=== PATIENT | male | born 1950 | race Hispanic/Latino ===

== ENCOUNTER → 2017-08-29 | Outpatient (CLI) | payer OTHER ==
[~2017-08-29] MED LIST: AMLO5TAB2 PO; FOLI1TAB15 PO; HYDR25TA PO; IBUP-2077 PO; LISI40TA4 PO; SIMV40TA5 PO; UMEC1DIS IH
== END | disposition home or self-care (01) ==
LOC: OIH 13:49
PROVIDERS: ATTEND Family Medicine
DX: J44.9 Chronic obstructive pulmonary disease, unspecified (principal)
CPT/HCPCS: 71046

== ENCOUNTER 2017-09-10 14:45 | Inpatient (IN) | payer OTHER ==
[~2017-09-10] VITALS: Ht 167.6 cm; Wt 50.8 kg
[2017-09-10] MEDS ORDERED: IPRATROPIUM/ALBUTEROL SULFATE 3 ML SOLUTION IH ONE (15:45)
[2017-09-10 15:47] LABS: BASOPHILS % (AUTO) 0.3 % (0.0-5.0); EOSINOPHILS % (AUTO) 0.9 % (0.0-8.0); HEMATOCRIT 29.9 % (42-54); LYMPHOCYTES % (AUTO) 12.1 % (21.0-51.0); MEAN CORPUSCULAR HEMOGLOBIN 29.9 pg (27.0-33.0); MEAN CORPUSCULAR HGB CONC 33.8 g/dL (32.0-36.0); MEAN CORPUSCULAR VOLUME 88.7 fL (79-99); MONOCYTES % (AUTO) 8.3 % (3.0-13.0); NEUTROPHILS % (AUTO) 78.4 % (40.0-77.0); PLATELET COUNT (AUTO) 338 K/uL (130-400); RED BLOOD CELL COUNT(AUTO) 3.37 MIL/uL (4.50-6.20); RED CELL DISTRIBUTION WIDTH 15.6 % (11.0-15.5); WHITE BLOOD COUNT (AUTO) 17.1 K/uL (4.8-10.8)
[2017-09-10] MEDS ORDERED: METHYLPREDNISOLONE SOD SUCC 125MG/2ML VIAL ONE ×2 (16:01→23:57)
[2017-09-10 16:06] LABS: APPEARANCE,URINE Clear (CLEAR); BILIRUBIN,URINE Negative (NEGATIVE); COLOR,URINE Yellow (YELLOW); GLUCOSE, URINE (UA) Negative (NEGATIVE); KETONES,URINE Negative (NEGATIVE); LEUKOCYTE ESTERASE ,URINE Negative (NEGATIVE); NITRATE,URINE Negative (NEGATIVE); OCCULT BLOOD,URINE Negative (NEGATIVE); PROTEIN,URINE Negative (NEGATIVE); UROBILINOGEN,URINE 0.2 mg/dL (0.2-1.0)
[2017-09-10 16:09] LABS: B-TYPE NATRIURETIC PEPTIDE 22 pg/mL (0-100)
[2017-09-10 16:10] LABS: INR 0.92 (0.85-1.15); PARTIAL THROMBOPLASTIN TIME 23.3 SEC (26.3-35.5); PROTHROMBIN TIME 9.7 SEC (9.6-11.6)
[2017-09-10 16:16] LABS: CREATININE 2.5 mg/dL (0.5-1.5); POTASSIUM 5.1 mmol/L (3.5-5.1)
[2017-09-10] MEDS ORDERED: LEVOFLOXACIN 500 MG TABLET ONE (16:22)
[2017-09-10] MEDS ORDERED: CEFTRIAXONE SODIUM 1 GM ONE (16:23)
[2017-09-10] MEDS ORDERED: SODIUM CHLORIDE 0.9% 250 ML IV ONE (16:23)
[2017-09-10 16:30] LABS: ALBUMIN 3.6 g/dL (3.5-5.0); BILIRUBIN,TOTAL 0.3 mg/dL (0.2-1.0); CREATINE KINASE MB 1.3 ng/mL (0.5-3.6)
[2017-09-10 23:25] VITALS: BP 176/59
[2017-09-10] MEDS ORDERED: AZITHROMYCIN 500MG+NS 250ML 250 ML IV ONE (23:55)
[2017-09-11] VITALS (7 sets, daily range): BP systolic 101–148; BP diastolic 49–60
[2017-09-11] MEDS ORDERED: ACETAMINOPHEN 325 MG TAB PO PRN ×2
[2017-09-11] MEDS: AZITHROMYCIN 500MG+NS 250ML 250 ML IV SCH
[2017-09-11] MEDS ORDERED: ONDANSETRON HCL 4 MG/2 ML VIAL IV PRN
[2017-09-11] MEDS ORDERED: FOLI1TAB15 PO (00:34)
[2017-09-11] MEDS ORDERED: LISI40TA4 PO (00:34)
[2017-09-11] MEDS ORDERED: UMEC1DIS IH (00:34)
[2017-09-11] MEDS ORDERED: HYDR25TA PO (00:34)
[2017-09-11] MEDS ORDERED: AMLO5TAB2 PO (00:34)
[2017-09-11] MEDS ORDERED: SIMV40TA5 PO (00:34)
[2017-09-11] MEDS ORDERED: IBUP-2077 PO (00:34)
[2017-09-11] MEDS: IPRATROPIUM/ALBUTEROL SULFATE 3 ML SOLUTION IH SCH ×6 (01:50→22:14)
[2017-09-11 04:50] LABS: HEMATOCRIT 28.2 % (42-54); MEAN CORPUSCULAR HEMOGLOBIN 28.5 pg (27.0-33.0); MEAN CORPUSCULAR HGB CONC 32.3 g/dL (32.0-36.0); PLATELET COUNT (AUTO) 337 K/uL (130-400); RED CELL DISTRIBUTION WIDTH 15.9 % (11.0-15.5); WHITE BLOOD COUNT (AUTO) 7.6 K/uL (4.8-10.8)
[2017-09-11 05:02] LABS: ALBUMIN 3.1 g/dL (3.5-5.0); BILIRUBIN,TOTAL 0.3 mg/dL (0.2-1.0); CREATININE 1.3 mg/dL (0.5-1.5); POTASSIUM 4.4 mmol/L (3.5-5.1); TOTAL PROTEIN, SERUM 6.6 g/dL (6.0-8.3)
[2017-09-11] MEDS ORDERED: SODIUM CHLORIDE 0.9% 10 ML VIAL IVP PRN (07:00)
[2017-09-11] MEDS: PANTOPRAZOLE SODIUM 40 MG TABLET.DR PO SCH (07:08)
[2017-09-11] MEDS ORDERED: PNEUMOCOCCAL VACCINE POLYVALENT 0.5 ML/VIAL [PPV] IM SCH (07:30)
[2017-09-11] MEDS ORDERED: FLU VACC QS2017-18 36MOS UP/PF 60 MCG/0.5 ML ML IM NR (07:30)
[2017-09-11] MEDS ORDERED: CEFTRIAXONE 1GM/D5W 50ML 50 ML IV SCH (09:00)
[2017-09-11] MEDS ORDERED: PANTOPRAZOLE SODIUM 40 MG TABLET.DR PO SCH (09:00)
[2017-09-11] MEDS: METHYLPREDNISOLONE SOD SUCC 125MG/2ML VIAL IVP SCH ×3 (09:54→17:17)
[2017-09-11] MEDS: CEFTRIAXONE SODIUM 1 GM IVP SCH (10:21)
[2017-09-11] MEDS: SODIUM CHLORIDE 0.9% 1000ML 1,000 ML IV SCH (14:00)
[2017-09-11] MEDS: ATORVASTATIN CALCIUM 20 MG TABLET PO SCH (21:03)
[2017-09-12] MEDS: METHYLPREDNISOLONE SOD SUCC 125MG/2ML VIAL IVP SCH ×3 (00:01→20:30)
[2017-09-12] MEDS: AZITHROMYCIN 500MG+NS 250ML 250 ML IV SCH ×2 (00:01→23:40)
[2017-09-12] MEDS: IPRATROPIUM/ALBUTEROL SULFATE 3 ML SOLUTION IH SCH ×4 (01:56→14:40)
[2017-09-12 03:00] VITALS: BP 100/48
[2017-09-12] MEDS: SODIUM CHLORIDE 0.9% 1000ML 1,000 ML IV SCH (05:03)
[2017-09-12 05:13] LABS: BASOPHILS % (AUTO) 0.1 % (0.0-5.0); HEMATOCRIT 23.8 % (42-54); LYMPHOCYTES % (AUTO) 5.3 % (21.0-51.0); MEAN CORPUSCULAR HEMOGLOBIN 29.4 pg (27.0-33.0); MEAN CORPUSCULAR HGB CONC 33.3 g/dL (32.0-36.0); MEAN CORPUSCULAR VOLUME 88.3 fL (79-99); MONOCYTES % (AUTO) 3.7 % (3.0-13.0); NEUTROPHILS % (AUTO) 90.9 % (40.0-77.0); PLATELET COUNT (AUTO) 300 K/uL (130-400); RED CELL DISTRIBUTION WIDTH 15.5 % (11.0-15.5); WHITE BLOOD COUNT (AUTO) 11.7 K/uL (4.8-10.8)
[2017-09-12 05:37] LABS: ALBUMIN 2.7 g/dL (3.5-5.0); BILIRUBIN,TOTAL 0.2 mg/dL (0.2-1.0); CREATININE 1.2 mg/dL (0.5-1.5); POTASSIUM 3.7 mmol/L (3.5-5.1); TOTAL PROTEIN, SERUM 5.6 g/dL (6.0-8.3)
[2017-09-12] MEDS: PANTOPRAZOLE SODIUM 40 MG TABLET.DR PO SCH (06:53)
[2017-09-12 08:00] VITALS: BP 109/49
[2017-09-12] MEDS ORDERED: WATER FOR INJECTION,STERILE 20 ML VIAL ONE (08:45)
[2017-09-12] MEDS: CEFTRIAXONE SODIUM 1 GM IVP SCH (08:51)
[2017-09-12] MEDS: FOLIC ACID 1 MG TABLET PO SCH (08:52)
[2017-09-12] MEDS: AMLODIPINE BESYLATE 5 MG TAB PO SCH (09:00)
[2017-09-12] MEDS ORDERED: NON-FORMULARY MEDICATION 1 EACH (Umeclidinium Brm/Vilanterol Tr (Anoro Ellipta 62.5-25 Mcg IH SCH (09:00)
[2017-09-12 11:52] VITALS: BP 140/59
[2017-09-12 15:50] VITALS: BP 165/71
[2017-09-12] MEDS: ALBUTEROL SULFATE 0.083% 2.5 MG/3 ML INH IH SCH ×2 (19:11→22:24)
[2017-09-12] MEDS: BUDESONIDE 0.5 MG/2 ML INH IH SCH (19:15)
[2017-09-12] MEDS: ATORVASTATIN CALCIUM 20 MG TABLET PO SCH (19:47)
[2017-09-12 20:13] VITALS: BP 174/78
[2017-09-12] MEDS ORDERED: METHYLPREDNISOLONE SOD SUCC 40MG/ML 1ML ONE (20:18)
[2017-09-12 20:38] LABS: ABG BASE EXCESS -1.3 mmol/L (-2.0-3.0); ABG HCO3 22.9 mmol/L (21.0-28.0); ABG OXYGEN SATURATION 93.4 % (95.0-99.0); ABG PCO2 37 mmHg (35-48)
[2017-09-12] MEDS ORDERED: IOPAMIDOL-370 75 ML VIAL IV ONE (20:59)
[2017-09-13] VITALS (7 sets, daily range): BP systolic 124–167; BP diastolic 60–80
[2017-09-13] MEDS: METHYLPREDNISOLONE SOD SUCC 125MG/2ML VIAL IVP SCH ×3 (05:18→21:17)
[2017-09-13 05:24] LABS: HEMATOCRIT 25.5 % (42-54); LYMPHOCYTES % (AUTO) 5.7 % (21.0-51.0); MEAN CORPUSCULAR HEMOGLOBIN 29.2 pg (27.0-33.0); MEAN CORPUSCULAR HGB CONC 33.1 g/dL (32.0-36.0); MEAN CORPUSCULAR VOLUME 88.1 fL (79-99); MONOCYTES % (AUTO) 8.8 % (3.0-13.0); NEUTROPHILS % (AUTO) 85.5 % (40.0-77.0); PLATELET COUNT (AUTO) 294 K/uL (130-400); RED CELL DISTRIBUTION WIDTH 15.7 % (11.0-15.5)
[2017-09-13] MEDS: ALBUTEROL SULFATE 0.083% 2.5 MG/3 ML INH IH SCH ×4 (06:23→23:05)
[2017-09-13] MEDS: BUDESONIDE 0.5 MG/2 ML INH IH SCH ×2 (06:31→20:04)
[2017-09-13] MEDS: PANTOPRAZOLE SODIUM 40 MG TABLET.DR PO SCH (06:44)
[2017-09-13] MEDS ORDERED: WATER FOR INJECTION,STERILE 5 ML VIAL ONE (07:59)
[2017-09-13] MEDS: FOLIC ACID 1 MG TABLET PO SCH (08:41)
[2017-09-13] MEDS: AMLODIPINE BESYLATE 5 MG TAB PO SCH (08:41)
[2017-09-13] MEDS: CEFTRIAXONE SODIUM 1 GM IVP SCH (08:42)
[2017-09-13] MEDS: ATORVASTATIN CALCIUM 20 MG TABLET PO SCH (21:17)
[2017-09-13] MEDS: LISINOPRIL 40 MG TABLET PO SCH (21:17)
[2017-09-13] MEDS: AZITHROMYCIN 500MG+NS 250ML 250 ML IV SCH (23:52)
[2017-09-14 04:00] VITALS: BP 128/60
[2017-09-14] MEDS: METHYLPREDNISOLONE SOD SUCC 125MG/2ML VIAL IVP SCH ×3 (04:40→21:05)
[2017-09-14 05:08] LABS: HEMATOCRIT 25.6 % (42-54); LYMPHOCYTES % (AUTO) 7.8 % (21.0-51.0); MEAN CORPUSCULAR HGB CONC 32.7 g/dL (32.0-36.0); MEAN CORPUSCULAR VOLUME 88.6 fL (79-99); MONOCYTES % (AUTO) 6.3 % (3.0-13.0); NEUTROPHILS % (AUTO) 85.9 % (40.0-77.0); PLATELET COUNT (AUTO) 272 K/uL (130-400); RED BLOOD CELL COUNT(AUTO) 2.89 MIL/uL (4.50-6.20); RED CELL DISTRIBUTION WIDTH 15.6 % (11.0-15.5); WHITE BLOOD COUNT (AUTO) 12.4 K/uL (4.8-10.8)
[2017-09-14 05:19] LABS: ALBUMIN 2.6 g/dL (3.5-5.0); BILIRUBIN,TOTAL 0.2 mg/dL (0.2-1.0); CREATININE 0.9 mg/dL (0.5-1.5); TOTAL PROTEIN, SERUM 5.4 g/dL (6.0-8.3)
[2017-09-14] MEDS: ALBUTEROL SULFATE 0.083% 2.5 MG/3 ML INH IH SCH ×4 (05:46→23:59)
[2017-09-14] MEDS: BUDESONIDE 0.5 MG/2 ML INH IH SCH ×2 (05:58→17:51)
[2017-09-14] MEDS: PANTOPRAZOLE SODIUM 40 MG TABLET.DR PO SCH (05:59)
[2017-09-14 07:00] VITALS: BP 138/63
[2017-09-14] MEDS ORDERED: LISINOPRIL 40 MG TABLET PO SCH (09:00)
[2017-09-14] MEDS: AMLODIPINE BESYLATE 5 MG TAB PO SCH (10:53)
[2017-09-14] MEDS: FOLIC ACID 1 MG TABLET PO SCH (10:53)
[2017-09-14] MEDS: CEFTRIAXONE SODIUM 1 GM IVP SCH (10:54)
[2017-09-14 11:00] VITALS: BP 155/85
[2017-09-14 15:00] VITALS: BP 187/80
[2017-09-14 20:00] VITALS: BP 137/59
[2017-09-14] MEDS: ATORVASTATIN CALCIUM 20 MG TABLET PO SCH (21:05)
[2017-09-14] MEDS: LISINOPRIL 40 MG TABLET PO SCH (21:06)
[2017-09-14] MEDS: AZITHROMYCIN 500MG+NS 250ML 250 ML IV SCH (23:59)
[2017-09-15] VITALS (7 sets, daily range): BP systolic 123–182; BP diastolic 56–81
[2017-09-15] MEDS: METHYLPREDNISOLONE SOD SUCC 125MG/2ML VIAL IVP SCH ×2 (04:36→12:22)
[2017-09-15] MEDS: ALBUTEROL SULFATE 0.083% 2.5 MG/3 ML INH IH SCH ×2 (05:47→11:05)
[2017-09-15] MEDS: BUDESONIDE 0.5 MG/2 ML INH IH SCH (06:05)
[2017-09-15] MEDS: PANTOPRAZOLE SODIUM 40 MG TABLET.DR PO SCH (06:17)
[2017-09-15] MEDS: AMLODIPINE BESYLATE 5 MG TAB PO SCH (10:12)
[2017-09-15] MEDS: FOLIC ACID 1 MG TABLET PO SCH (10:12)
[2017-09-15] MEDS: CEFTRIAXONE SODIUM 1 GM IVP SCH (10:12)
[2017-09-15] MEDS ORDERED: CLONIDINE HCL 0.2 MG TABLET PO PRN (17:45)
[2017-09-15] MEDS: ATORVASTATIN CALCIUM 20 MG TABLET PO SCH (21:47)
[2017-09-15] MEDS: LISINOPRIL 40 MG TABLET PO SCH (21:48)
== END 2017-09-15 22:20 | DRG 190 ==
LOC: EDH 14:45 → EDHIP 16:20 → 4CH 23:15 → 4BH 09-12 03:57
PROVIDERS: ADMIT Family Medicine; ATTEND Family Medicine
PROC: 3E0234Z Introduction of Serum, Toxoid and Vaccine into Muscle, Percutaneous Approach (ICD-10-PCS; principal; 2017-09-11)
PROC: 3E0234Z Introduction of Serum, Toxoid and Vaccine into Muscle, Percutaneous Approach (ICD-10-PCS; 2017-09-11)
DX: J44.1 Chronic obstructive pulmonary disease with (acute) exacerbation (principal); J18.9 Pneumonia, unspecified organism; E87.5 Hyperkalemia; E11.9 Type 2 diabetes mellitus without complications; E78.5 Hyperlipidemia, unspecified; I10 Essential (primary) hypertension; Z87.891 Personal history of nicotine dependence
CPT/HCPCS: 36415; 36600; 71045; 71275; 80053; 81003; 82270; 82550; 82553; 82803; 83605; 83880; 84484; 85025; 85027; 85610; 85730; 87040; 87804; 90732; 93005; 93306; 94640; 94664; A4218; G0008; G0009; J0456; J0696; J2920; J2930; J7030; Q2038; Q9967

== ENCOUNTER 2018-11-10 23:25 | Emergency (ER) | payer OTHER ==
[~2018-11-10 23:25] MED LIST changes: -AMLO5TAB2 PO; +AMLO5TAB9 PO; -IBUP-2077 PO
[2018-11-11 00:04] LABS: BASOPHILS % (AUTO) 0.3 % (0.0-5.0); HEMATOCRIT 35.3 % (42-54); LYMPHOCYTES % (AUTO) 13.8 % (21.0-51.0); MEAN CORPUSCULAR HEMOGLOBIN 29.4 pg (27.0-33.0); MEAN CORPUSCULAR HGB CONC 33.2 g/dL (32.0-36.0); MEAN CORPUSCULAR VOLUME 88.6 fL (79-99); MONOCYTES % (AUTO) 3.1 % (3.0-13.0); NEUTROPHILS % (AUTO) 82.8 % (40.0-77.0); PLATELET COUNT (AUTO) 277 K/uL (130-400); RED BLOOD CELL COUNT(AUTO) 3.99 MIL/uL (4.50-6.20); RED CELL DISTRIBUTION WIDTH 14.3 % (11.0-15.5); WHITE BLOOD COUNT (AUTO) 6.6 K/uL (4.8-10.8)
[2018-11-11 00:11] LABS: INR 1.07 (0.85-1.15); PARTIAL THROMBOPLASTIN TIME 30.1 SEC (26.3-35.5); PROTHROMBIN TIME 11.2 SEC (9.6-11.6)
[2018-11-11] MEDS ORDERED: CEFTRIAXONE SODIUM 1 GM ONE (00:26)
[2018-11-11] MEDS ORDERED: LEVOFLOXACIN 500 MG/D5W 100 ML 100 ML ONE (00:26)
[2018-11-11] MEDS ORDERED: IPRATROPIUM/ALBUTEROL SULFATE 3 ML SOLUTION IH ONE (00:37)
[2018-11-11 00:49] LABS: ABG HCO3 21.2 mmol/L (21.0-28.0); ABG OXYGEN SATURATION 96.8 % (95.0-99.0); ABG PCO2 36 mmHg (35-48)
[2018-11-11 01:29] LABS: CREATININE 1.8 mg/dL (0.5-1.5); POTASSIUM 4.5 mmol/L (3.5-5.1)
[2018-11-11 01:44] LABS: ALBUMIN 4.2 g/dL (3.5-5.0); BILIRUBIN,TOTAL 0.3 mg/dL (0.2-1.0); TOTAL PROTEIN, SERUM 7.9 g/dL (6.0-8.3); TROPONIN I 0.06 ng/mL (0.00-0.06)
[2018-11-11] MEDS ORDERED: METHYLPREDNISOLONE SOD SUCC 125MG/2ML VIAL ONE (02:11)
[2018-11-11 02:47] LABS: APPEARANCE,URINE CLEAR (CLEAR); BILIRUBIN,URINE NEGATIVE (NEGATIVE); COLOR,URINE YELLOW (YELLOW); GLUCOSE, URINE (UA) 100 mg/dL (NEGATIVE); KETONES,URINE NEGATIVE (NEGATIVE); LEUKOCYTE ESTERASE ,URINE NEGATIVE (NEGATIVE); NITRATE,URINE NEGATIVE (NEGATIVE); OCCULT BLOOD,URINE TRACE-LYSED (NEGATIVE); PROTEIN,URINE NEGATIVE (NEGATIVE); UROBILINOGEN,URINE 0.2 mg/dL (0.2-1.0)
[2018-11-11 02:54] LABS: BACTERIA,URINE Rare /HPF (None Seen); RBC,URINE 0-1 /HPF (0-1); SQUAMOUS EPITHELIAL CELL,UR 0-2 /HPF (0-2); WBC,URINE 0-1 /HPF (0-1)
[2018-11-11 03:41] LABS: CREATININE 1.6 mg/dL (0.5-1.5); POTASSIUM 3.8 mmol/L (3.5-5.1)
[2018-11-11 05:33] LABS: CREATININE 1.5 mg/dL (0.5-1.5); POTASSIUM 3.8 mmol/L (3.5-5.1)
== END 2018-11-11 02:04 | disposition home or self-care (01) ==
LOC: EDH 23:25
DX: J44.1 Chronic obstructive pulmonary disease with (acute) exacerbation (principal); I10 Essential (primary) hypertension; E78.5 Hyperlipidemia, unspecified; Z90.49 Acquired absence of other specified parts of digestive tract
CPT/HCPCS: 36415; 36600; 71045; 71275; 80048 ×2; 80053; 81001; 82550; 82803; 83605; 83874; 83880; 84484; 85025; 85378; 85610; 85730; 87040 ×2; 93005; 94640 ×2; 96365; 96366; 96375; 99284; J0696; J1956; J2930

== ENCOUNTER → 2018-11-11 | Outpatient (CLI) | payer OTHER ==
[~2018-11-11] MED LIST changes: +IOHEXOL-350 75 ML VIAL IV ONE; +IPRATROPIUM/ALBUTEROL SULFATE 3 ML SOLUTION IH ONE
== END | disposition home or self-care (01) ==
LOC: RAH 09:30
PROVIDERS: ATTEND Family Medicine
DX: R10.11 Right upper quadrant pain (principal)
CPT/HCPCS: 76700; Q9967

== ENCOUNTER 2019-01-04 17:30 | Emergency (ER) | payer OTHER ==
[~2019-01-04 17:30] MED LIST changes: -IOHEXOL-350 75 ML VIAL IV ONE; -IPRATROPIUM/ALBUTEROL SULFATE 3 ML SOLUTION IH ONE
[2019-01-04 18:11] LABS: BASOPHILS % (AUTO) 0.6 % (0.0-5.0); EOSINOPHILS % (AUTO) 1.6 % (0.0-8.0); HEMATOCRIT 34.5 % (42-54); MEAN CORPUSCULAR HEMOGLOBIN 29.6 pg (27.0-33.0); MEAN CORPUSCULAR HGB CONC 33.4 g/dL (32.0-36.0); MEAN CORPUSCULAR VOLUME 88.8 fL (79-99); MONOCYTES % (AUTO) 10.7 % (3.0-13.0); NEUTROPHILS % (AUTO) 66.1 % (40.0-77.0); NUCLEATED RED BLOOD CELLS 0.1 % (0.0-0.19); PLATELET COUNT (AUTO) 356 K/uL (130-400); RED BLOOD CELL COUNT(AUTO) 3.88 MIL/uL (4.50-6.20); RED CELL DISTRIBUTION WIDTH 15.4 % (11.0-15.5); WHITE BLOOD COUNT (AUTO) 7.6 K/uL (4.8-10.8)
[2019-01-04 18:32] LABS: B-TYPE NATRIURETIC PEPTIDE 60 pg/mL (0-100)
[2019-01-04 18:34] LABS: CREATININE 1.2 mg/dL (0.5-1.5)
[2019-01-04 18:35] LABS: INR 0.95 (0.85-1.15); PARTIAL THROMBOPLASTIN TIME 25.9 SEC (26.3-35.5)
[2019-01-04 18:45] LABS: ALBUMIN 4.4 g/dL (3.5-5.0); BILIRUBIN,TOTAL 0.5 mg/dL (0.2-1.0); TOTAL PROTEIN, SERUM 7.6 g/dL (6.0-8.3)
[2019-01-04] MEDS ORDERED: METHYLPREDNISOLONE SOD SUCC 125MG/2ML VIAL ONE (19:27)
[2019-01-04 20:09] LABS: APPEARANCE,URINE Clear (CLEAR); BILIRUBIN,URINE Negative (NEGATIVE); COLOR,URINE Yellow (YELLOW); GLUCOSE, URINE (UA) Negative (NEGATIVE); KETONES,URINE Negative (NEGATIVE); LEUKOCYTE ESTERASE ,URINE Negative (NEGATIVE); NITRATE,URINE Negative (NEGATIVE); OCCULT BLOOD,URINE Negative (NEGATIVE); PROTEIN,URINE Negative (NEGATIVE); UROBILINOGEN,URINE 0.2 mg/dL (0.2-1.0)
[2019-01-04] MEDS ORDERED: IPRATROPIUM/ALBUTEROL SULFATE 3 ML SOLUTION IH ONE (21:19)
== END 2019-01-04 22:35 | disposition home or self-care (01) ==
LOC: EDH 17:30
DX: J44.1 Chronic obstructive pulmonary disease with (acute) exacerbation (principal); I10 Essential (primary) hypertension; E78.5 Hyperlipidemia, unspecified
CPT/HCPCS: 36415; 71045; 80053; 81003; 82550; 83605; 83880; 83930; 83935; 84443; 84484 ×2; 85025; 85610; 85730; 87040 ×2; 87804 ×2; 93005 ×2; 94640; 96374; 99285; A4218; J2930

== ENCOUNTER 2019-05-31 14:00 | Inpatient (IN) | payer OTHER ==
[~2019-05-31] VITALS: Ht 167.6 cm; Wt 45.8 kg
[~2019-05-31 14:00] MED LIST changes: +SIMV-46 PO; -SIMV40TA5 PO
[2019-05-31] MEDS ORDERED: METHYLPREDNISOLONE SOD SUCC 40MG/ML 1ML ONE (14:28)
[2019-05-31 14:29] LABS: BASOPHILS % (AUTO) 0.2 % (0.0-5.0); EOSINOPHILS % (AUTO) 0.1 % (0.0-8.0); HEMATOCRIT 33.1 % (42-54); LYMPHOCYTES % (AUTO) 7.3 % (21.0-51.0); MEAN CORPUSCULAR HGB CONC 33.2 g/dL (32.0-36.0); MEAN CORPUSCULAR VOLUME 93.3 fL (79-99); MONOCYTES % (AUTO) 10.7 % (3.0-13.0); NEUTROPHILS % (AUTO) 81.7 % (40.0-77.0); NUCLEATED RED BLOOD CELLS 0.1 % (0.0-0.19); PLATELET COUNT (AUTO) 283 K/uL (130-400); RED BLOOD CELL COUNT(AUTO) 3.55 MIL/uL (4.50-6.20); RED CELL DISTRIBUTION WIDTH 15.2 % (11.0-15.5); WHITE BLOOD COUNT (AUTO) 16.9 K/uL (4.8-10.8)
[2019-05-31] MEDS ORDERED: IPRATROPIUM/ALBUTEROL SULFATE 3 ML SOLUTION IH ONE (14:37)
[2019-05-31 14:39] LABS: INR 0.92 (0.85-1.15); PARTIAL THROMBOPLASTIN TIME 31.2 SEC (26.3-35.5); PROTHROMBIN TIME 9.7 SEC (9.6-11.6)
[2019-05-31 14:41] LABS: CREATININE 2.1 mg/dL (0.5-1.5); POTASSIUM 3.8 mmol/L (3.5-5.1)
[2019-05-31 14:45] LABS: ALBUMIN 3.2 g/dL (3.5-5.0); BILIRUBIN,TOTAL 0.4 mg/dL (0.2-1.0); TOTAL PROTEIN, SERUM 7.7 g/dL (6.0-8.3)
[2019-05-31] MEDS ORDERED: SODIUM CHLORIDE 0.9% 50 ML IV ONE (15:34)
[2019-05-31] MEDS ORDERED: AZITHROMYCIN 250 MG TABLET PO ONE (15:34)
[2019-05-31] MEDS ORDERED: CEFTRIAXONE SODIUM 1 GM ONE (15:34)
[2019-05-31] MEDS ORDERED: LEVOFLOXACIN 500 MG/D5W 100 ML 100 ML ONE (18:03)
[2019-05-31] MEDS ORDERED: ZOLPIDEM TARTRATE 5 MG TAB PO PRN (19:30)
[2019-05-31] MEDS ORDERED: GUAIFENESIN-DM 200/20 MG 10 ML PO PRN (19:30)
[2019-05-31] MEDS ORDERED: SODIUM CHLORIDE 0.9% 10 ML VIAL IVP SCH (19:30)
[2019-05-31] MEDS ORDERED: DIPHENHYDRAMINE HCL 25 MG CAPSULE PO PRN (19:30)
[2019-05-31] MEDS ORDERED: NITROGLYCERIN 0.4 MG SL TAB SL PRN (19:30)
[2019-05-31] MEDS ORDERED: LACTULOSE 20 GM/30 ML UDCUP PO PRN (19:30)
[2019-05-31] MEDS ORDERED: MAG HYDROX/AL HYDROX/SIMETH ES 30 ML SUSP UDCUP PO PRN (19:30)
[2019-05-31] MEDS ORDERED: GUAIFENESIN SUGAR-FREE 100 MG/5 ML UDCUP PO PRN (19:30)
[2019-05-31] MEDS ORDERED: ACETAMINOPHEN 325 MG TAB PO PRN ×2 (19:30)
[2019-05-31] MEDS ORDERED: ONDANSETRON HCL 4 MG/2 ML VIAL IVP PRN (19:30)
[2019-05-31] MEDS ORDERED: DiphenhydrAMINE HCL 50 MG/ML VIAL IVP PRN (19:30)
[2019-05-31] MEDS ORDERED: CLONIDINE HCL 0.1 MG TABLET PO PRN (19:30)
[2019-05-31] MEDS ORDERED: METHYLPREDNISOLONE SOD SUCC 125MG/2ML VIAL ONE (20:29)
[2019-05-31] MEDS: IPRATROPIUM/ALBUTEROL SULFATE 3 ML SOLUTION IH SCH (22:12)
[2019-06-01] VITALS (7 sets, daily range): BP systolic 120–152; BP diastolic 58–76
--- NOTE | 2019-06-01 01:43 | NUR ---
ADMISSION NOTE: Received to floor per stretcher from ER. Fully awake and responsive. AOx3. Continuously attached to O2 at 2LPM via NC with O2Sat at 95%. VS checked and recorded. Assessment done ( See CPOE flow chart for full assessment. Plan of care initiated. Home meds listed. Monitored and observed for any unusual changes. Needs attended and cared for. Denies feeling of discomfort. No apparent distress noted.
[2019-06-01] MEDS ORDERED: ACET-66 PO (02:37)
[2019-06-01] MEDS ORDERED: FLUT1AER IH (02:37)
[2019-06-01] MEDS ORDERED: LISI40TA4 PO (02:37)
[2019-06-01] MEDS ORDERED: BUSP10TA3 PO (02:37)
[2019-06-01] MEDS ORDERED: LORA-192 PO (02:37)
[2019-06-01] MEDS: IPRATROPIUM/ALBUTEROL SULFATE 3 ML SOLUTION IH SCH ×6 (03:22→21:17)
[2019-06-01] MEDS: METHYLPREDNISOLONE SOD SUCC 125MG/2ML VIAL IVP SCH ×5 (05:08→23:40)
[2019-06-01 05:11] LABS: BASOPHILS % (AUTO) 0.3 % (0.0-5.0); HEMATOCRIT 29.4 % (42-54); LYMPHOCYTES % (AUTO) 3.9 % (21.0-51.0); MEAN CORPUSCULAR HEMOGLOBIN 31.6 pg (27.0-33.0); MEAN CORPUSCULAR HGB CONC 34.2 g/dL (32.0-36.0); MEAN CORPUSCULAR VOLUME 92.4 fL (79-99); MONOCYTES % (AUTO) 4.3 % (3.0-13.0); NEUTROPHILS % (AUTO) 91.5 % (40.0-77.0); NUCLEATED RED BLOOD CELLS 0.1 % (0.0-0.19); PLATELET COUNT (AUTO) 265 K/uL (130-400); RED BLOOD CELL COUNT(AUTO) 3.19 MIL/uL (4.50-6.20); RED CELL DISTRIBUTION WIDTH 14.4 % (11.0-15.5); WHITE BLOOD COUNT (AUTO) 10.9 K/uL (4.8-10.8)
[2019-06-01 05:45] LABS: CREATININE 1.5 mg/dL (0.5-1.5); POTASSIUM 3.4 mmol/L (3.5-5.1)
[2019-06-01] MEDS ORDERED: FLU VACC QS2019-20 36MOS UP/PF 60 MCG/0.5 ML ML IM SCH (06:30)
[2019-06-01] MEDS: LEVOFLOXACIN 500 MG/D5W 100 ML 100 ML IV SCH (09:53)
--- NOTE | 2019-06-01 15:09 | NUR ---
RD NOTIFICATION DX: ACUTE COPD EXACERBATION. HX: PNEUMONIA. BMI IS 16.3; CLASSIFIED UNDERWEIGHT. PT CLAIMS TO EAT SLOW, HE NEEDS TO TAKE HIS TIME TO EAT COMFORTABLY. PT HAS UNSTEADY HANDS SO IT MAKES EATING DIFFICULT PER PT. PT REFUSED ASSISTED FEEDINGS, BUT DO RECOMMEND TO HELP GET PT TRAY SET UP (OPEN PACKAGING/ DRINKS) SO PT IS-ABLE-TO EAT MORE COMFORTABLY. HE WEARS DENTURES AND CLAIMS TO HAVE DIFFICULTY CHEWING MEAT. PO INTAKE 25% AND HAS POOR APPETITE PER PT. PHYSICAL EVIDENCE OF MUSCLE AND FAT LOSS NOTED. RD RECOMMENDS TO CONTINUE CURRENT DIET, ADD MECHANICAL CHOPPED/ SOFT, OFFER ENSURE BID. RECOMMEND APPETITE STIMULANT IF MEDICALLY FEASIBLE. ASSIST PT IN SETTING UP FOOD TRAY (OPEN PACKAGING/ DRINKS), ASSIST IN FEEDINGS IF ALLOWED PLEASE. RD WILL CONTINUE TO MONITOR AND FOLLOW UP NEEDED. THANK YOU. Addendum: 06/01/19 at [address] Amended: Links added.
--- NOTE | 2019-06-01 16:04 | NUR ---
DCP CM met with pt discussed dc plans. Pt is independent prior to admission, lives at home alone, daughter lives close by. Pt denies any equipments/services. Feels safe to go back home, stated friend Talisha Sosa able to assist with transportation, sister able to assist as well w/transportation and needs as necessary. Pt agreeable for placement if necessary, stated been to [facility] before last year, would like to decide once MD makes recommendations. Prefers to go back home for now. DC plan to home vs SNF. CM to cont to follow up. Addendum: 06/01/19 at 1609 by PARMJIT FUENTES LVN CM Amended: Links added.
[2019-06-02] MEDS: IPRATROPIUM/ALBUTEROL SULFATE 3 ML SOLUTION IH SCH ×3 (01:31→09:07)
[2019-06-02 04:00] VITALS: BP 124/62
[2019-06-02] MEDS: METHYLPREDNISOLONE SOD SUCC 125MG/2ML VIAL IVP SCH ×3 (05:07→17:15)
[2019-06-02 06:04] LABS: BASOPHILS % (AUTO) 0.1 % (0.0-5.0); HEMATOCRIT 27.8 % (42-54); LYMPHOCYTES % (AUTO) 5.6 % (21.0-51.0); MEAN CORPUSCULAR HGB CONC 33.4 g/dL (32.0-36.0); MONOCYTES % (AUTO) 6.4 % (3.0-13.0); NEUTROPHILS % (AUTO) 87.9 % (40.0-77.0); NUCLEATED RED BLOOD CELLS 0.1 % (0.0-0.19); PLATELET COUNT (AUTO) 265 K/uL (130-400); RED BLOOD CELL COUNT(AUTO) 2.99 MIL/uL (4.50-6.20); RED CELL DISTRIBUTION WIDTH 14.9 % (11.0-15.5); WHITE BLOOD COUNT (AUTO) 11.4 K/uL (4.8-10.8)
[2019-06-02 06:20] LABS: ALBUMIN 2.5 g/dL (3.5-5.0); BILIRUBIN,TOTAL 0.2 mg/dL (0.2-1.0); CREATININE 1.2 mg/dL (0.5-1.5); POTASSIUM 3.1 mmol/L (3.5-5.1); TOTAL PROTEIN, SERUM 6.6 g/dL (6.0-8.3)
[2019-06-02 08:00] VITALS: BP 142/64
[2019-06-02] MEDS ORDERED: LIDOCAINE HCL-MPF 1% 2ML VIAL IV PRN (08:00)
[2019-06-02] MEDS ORDERED: LORAZEPAM 1 MG TABLET PO PRN ×2 (08:00→11:15)
[2019-06-02] MEDS ORDERED: POTASSIUM CHLORIDE 20MEQ/100ML 100 ML IV PRN (08:00)
[2019-06-02] MEDS ORDERED: POTASSIUM CHLORIDE 20 MEQ ERTAB PO PRN (08:00)
[2019-06-02] MEDS ORDERED: POTASSIUM CHLORIDE 10% ELIXIR 20 MEQ/15 ML UDCUP PO PRN (08:00)
[2019-06-02] MEDS: HYDROCHLOROTHIAZIDE 25 MG TABLET PO SCH (10:21)
[2019-06-02] MEDS: LISINOPRIL 40 MG TABLET PO SCH (10:22)
[2019-06-02] MEDS: AMLODIPINE BESYLATE 5 MG TAB PO SCH (10:22)
[2019-06-02] MEDS: BUSPIRONE HCL 5 MG TABLET PO SCH ×2 (10:22→20:37)
[2019-06-02] MEDS: LEVOFLOXACIN 500 MG/D5W 100 ML 100 ML IV SCH (10:22)
[2019-06-02 11:30] VITALS: BP 148/70
[2019-06-02 16:20] VITALS: BP 139/63
--- NOTE | 2019-06-02 17:00 | NUR ---
NOTE REMAINS STABLE THROUGHOUT THE DAY. SOB WITH EXERTION. HE CONTINUES WITH O2@2LNC. HE WALKED WITH PT AND DID NOT DESATURATE EITHER BUT HE DID C/O SOB.
--- NOTE | 2019-06-02 17:28 | NUR ---
Patient stated he was not able to continue walking. Stopped after 2minutes of walking. Addendum: 06/02/19 at 1731 by STARR DOVER Amended: Links added.
[2019-06-02] MEDS: BUDESONIDE 0.5 MG/2 ML INH IH SCH (18:56)
[2019-06-02 19:30] VITALS: BP 138/76
[2019-06-02] MEDS: SIMVASTATIN 20 MG TABLET PO SCH (20:37)
[2019-06-02 23:37] VITALS: BP 132/68
[2019-06-03] MEDS: METHYLPREDNISOLONE SOD SUCC 125MG/2ML VIAL IVP SCH ×2 (00:23→06:02)
[2019-06-03 03:35] VITALS: BP 124/63
[2019-06-03 05:44] LABS: HEMATOCRIT 27.8 % (42-54); MEAN CORPUSCULAR HEMOGLOBIN 31.3 pg (27.0-33.0); MEAN CORPUSCULAR HGB CONC 34.2 g/dL (32.0-36.0); MEAN CORPUSCULAR VOLUME 91.6 fL (79-99); NUCLEATED RED BLOOD CELLS 0.1 % (0.0-0.19); PLATELET COUNT (AUTO) 300 K/uL (130-400); RED BLOOD CELL COUNT(AUTO) 3.03 MIL/uL (4.50-6.20); RED CELL DISTRIBUTION WIDTH 15.2 % (11.0-15.5); WHITE BLOOD COUNT (AUTO) 9.5 K/uL (4.8-10.8)
[2019-06-03 05:57] LABS: CREATININE 1.1 mg/dL (0.5-1.5); POTASSIUM 4.3 mmol/L (3.5-5.1)
[2019-06-03] MEDS: BUDESONIDE 0.5 MG/2 ML INH IH SCH ×2 (06:55→18:26)
[2019-06-03 07:59] VITALS: BP 132/64
[2019-06-03] MEDS: AMLODIPINE BESYLATE 5 MG TAB PO SCH (08:09)
[2019-06-03] MEDS: BUSPIRONE HCL 5 MG TABLET PO SCH ×2 (08:09→19:58)
[2019-06-03] MEDS: HYDROCHLOROTHIAZIDE 25 MG TABLET PO SCH (08:09)
[2019-06-03] MEDS: LEVOFLOXACIN 500 MG/D5W 100 ML 100 ML IV SCH (08:09)
[2019-06-03] MEDS: LISINOPRIL 40 MG TABLET PO SCH (08:09)
--- NOTE | 2019-06-03 11:00 | NUR ---
CM Note: [facility] pending ins auth and acceptance. CM met with pt discussed MD recommendations for short term placement rehab, pt agreeable, JYOTI signed for [facility]. Faxed order, clinicals, PASRR, confirmation received. Spoke to Dixie will come eval pt. Pt pending ins auth and acceptance. Primary nurse aware. CM to cont to follow up.
[2019-06-03 12:09] VITALS: BP 140/69
--- NOTE | 2019-06-03 15:00 | NUR ---
NOTE HAS BEEN STABLE WITHOUT O2. HE HAD ANOTHER TRIAL OF AMBULATION WITHOUT O2 AND HE AGAIN BECAME VERY SOB. DR BARRERA OPTED TO SEND HIM TO SNF AND PATIENT IS IN AGREEMENT. 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 DENIES ANY MORE TREMORS AND HE HAS BEEN OFF NEBULIZER TREATMENTS.
[2019-06-03 16:44] VITALS: BP 135/68
[2019-06-03 19:25] VITALS: BP 135/67
[2019-06-03] MEDS: SIMVASTATIN 20 MG TABLET PO SCH (19:58)
[2019-06-03 23:37] VITALS: BP 119/61
[2019-06-04 03:35] VITALS: BP 128/70
[2019-06-04] MEDS: BUDESONIDE 0.5 MG/2 ML INH IH SCH ×2 (06:55→18:17)
[2019-06-04 08:00] VITALS: BP 123/59
[2019-06-04] MEDS: PREDNISONE 20 MG TABLET PO SCH (09:23)
[2019-06-04] MEDS: HYDROCHLOROTHIAZIDE 25 MG TABLET PO SCH (09:23)
[2019-06-04] MEDS: AMLODIPINE BESYLATE 5 MG TAB PO SCH (09:24)
[2019-06-04] MEDS: LISINOPRIL 40 MG TABLET PO SCH (09:24)
[2019-06-04] MEDS: BUSPIRONE HCL 5 MG TABLET PO SCH ×2 (09:24→19:58)
[2019-06-04] MEDS: LEVOFLOXACIN 500 MG/D5W 100 ML 100 ML IV SCH (09:29)
[2019-06-04 11:51] VITALS: BP 133/68
--- NOTE | 2019-06-04 12:45 | NUR ---
CM Note: [facility] pending ins auth Spoke to Dixie Samuel, updated clinicals received and forwarded to insurance this morning. Pt pending ins auth at this time. Pt safe to transer via [employer] transport van once auth received. Primary nurse aware. CM to cont to follow up.
--- NOTE | 2019-06-04 14:00 | NUR ---
RD NOTIFICATION/ FOLLOW UP DX: ACUTE COPD EXACERBATION. DIET: REGULAR, MECHANICAL SOFT/ CHOPPED, ENSURE BID. PO INTAKE 50% AND HAS POOR APPETITE PER PT. PT DOES NOT LIKE ENSURE, DRINKING 0%. PT IS TOLERATING MECHANICAL SOFT/CHOPPED TEXTURES WELL. LBM: 06/02. SKIN INTACT, NO EDEMA. PT PENDING D/C. PT NOT USED TO [facility] MEAL TIMES. PT EATS AT DIFFERENT TIMES COMPARED TO WHEN [facility] FEEDS PTS, PER PT. RD RECOMMENDS CONTINUING CURRENT DIET. D/C ENSURES. RD WILL CONTINUE TO FOLLOW UP NEEDED. THANK YOU. Addendum: 06/04/19 at [address] Amended: Links added.
--- NOTE | 2019-06-04 15:02 | NUR ---
CM Note: [facility] ins auth Spoke to Dixie Samuel, pt has ins auth for [facility]. Safe to transfer via [facility] transport van. Primary nurse and charge nurse aware. CM to cont to follow up.
[2019-06-04 16:00] VITALS: BP 149/61
[2019-06-04 19:05] VITALS: BP 131/73
[2019-06-04 19:12] VITALS: BP 131/73
[2019-06-04] MEDS: SIMVASTATIN 20 MG TABLET PO SCH (19:58)
[2019-06-05 00:05] VITALS: BP 128/82
[2019-06-05 04:10] VITALS: BP 118/67
[2019-06-05] MEDS: BUDESONIDE 0.5 MG/2 ML INH IH SCH (06:34)
[2019-06-05 08:00] VITALS: BP 135/72
[2019-06-05] MEDS: LISINOPRIL 40 MG TABLET PO SCH (08:55)
[2019-06-05] MEDS: HYDROCHLOROTHIAZIDE 25 MG TABLET PO SCH (08:55)
[2019-06-05] MEDS: BUSPIRONE HCL 5 MG TABLET PO SCH (08:55)
[2019-06-05] MEDS: PREDNISONE 20 MG TABLET PO SCH (08:55)
[2019-06-05] MEDS: AMLODIPINE BESYLATE 5 MG TAB PO SCH (08:55)
[2019-06-05] MEDS: LEVOFLOXACIN 500 MG/D5W 100 ML 100 ML IV SCH (08:56)
[2019-06-05 12:00] VITALS: BP 116/56
[2019-06-05] MEDS ORDERED: FLU VACC QS2019-20 36MOS UP/PF 60 MCG/0.5 ML ML IM SCH (14:20)
[2019-06-05] MEDS ORDERED: FLU VACC QS2019-20 36MOS UP/PF 60 MCG/0.5 ML ML IM ONE (14:30)
--- NOTE | 2019-06-05 15:44 | NUR ---
d/c report called and faxed to stevan at [facility]; chart copied; i have spoken to olamide pt's sister and informed her of pt's move; i have also spoken with patient and he agrees with move to snf; all of his belongings are packed and ready to go; will remove iv access now and give flu shot.
== END 2019-06-05 16:40 | DRG 190 ==
LOC: EDH 14:00 → EDHIP 16:50 → OBSVTOIN 16:50 → 3CH 06-01 01:41
PROVIDERS: ADMIT Family Medicine; ATTEND Family Medicine
DX: J44.0 Chronic obstructive pulmonary disease with (acute) lower respiratory infection (principal); J18.9 Pneumonia, unspecified organism; J44.1 Chronic obstructive pulmonary disease with (acute) exacerbation; I10 Essential (primary) hypertension; F41.9 Anxiety disorder, unspecified; Z23 Encounter for immunization
CPT/HCPCS: 36415; 71045; 80048; 80053; 82948; 84484; 85025; 85027; 85610; 85730; 87804; 93005; 94640; 94664; 94760; G0008; G0378; J0696; J1956; J2920; J2930

== ENCOUNTER 2020-07-31 00:24 | Emergency (ER) | payer OTHER, MEDICARE ==
[~2020-07-31 00:24] MED LIST changes: +ACET-66 PO; +AMLO-257 PO; -AMLO5TAB9 PO; +BUSP10TA3 PO; +FLUT1AER IH; -FOLI1TAB15 PO; +LORA-192 PO; -UMEC1DIS IH
[2020-07-31 01:05] LABS: BASOPHILS % (AUTO) 0.7 % (0.0-5.0); HEMATOCRIT 35.3 % (42-54); LYMPHOCYTES % (AUTO) 20.5 % (21.0-51.0); MEAN CORPUSCULAR HEMOGLOBIN 29.7 pg (27.0-33.0); MEAN CORPUSCULAR HGB CONC 32.3 g/dL (32.0-36.0); MEAN CORPUSCULAR VOLUME 91.9 fL (79-99); MONOCYTES % (AUTO) 8.8 % (3.0-13.0); NEUTROPHILS % (AUTO) 68.8 % (40.0-77.0); PLATELET COUNT (AUTO) 355 K/uL (130-400); RED BLOOD CELL COUNT(AUTO) 3.84 MIL/uL (4.50-6.20); RED CELL DISTRIBUTION WIDTH 15.3 % (11.0-15.5); WHITE BLOOD COUNT (AUTO) 12.3 K/uL (4.8-10.8)
[2020-07-31 01:12] LABS: CREATININE 1.6 mg/dL (0.5-1.5); POTASSIUM 4.4 mmol/L (3.5-5.1)
[2020-07-31 01:24] LABS: ALBUMIN 4.8 g/dL (3.5-5.0); BILIRUBIN,TOTAL 0.3 mg/dL (0.2-1.0); THYROID STIMULATING HORMONE 0.7 uIU/mL (0.36-3.74); TOTAL PROTEIN, SERUM 8.4 g/dL (6.0-8.3)
[2020-07-31 02:11] LABS: APPEARANCE,URINE Clear (CLEAR); BILIRUBIN,URINE Negative (NEGATIVE); COLOR,URINE Yellow (YELLOW); GLUCOSE, URINE (UA) Negative (NEGATIVE); KETONES,URINE Negative (NEGATIVE); LEUKOCYTE ESTERASE ,URINE Negative (NEGATIVE); NITRATE,URINE Negative (NEGATIVE); OCCULT BLOOD,URINE Negative (NEGATIVE); PROTEIN,URINE Negative (NEGATIVE); UROBILINOGEN,URINE 0.2 mg/dL (0.2-1.0)
[2020-07-31] MEDS ORDERED: ALBUTEROL SULFATE 0.083% 2.5 MG/3 ML INH IH ONE (03:44)
[2020-07-31 03:56] LABS: ABG BASE EXCESS -3.5 mmol/L (-2.0-3.0); ABG HCO3 21.9 mmol/L (21.0-28.0); ABG OXYGEN SATURATION 93.3 % (95.0-99.0); ABG PCO2 41 mmHg (35-48)
== END 2020-07-31 05:07 | disposition home or self-care (01) ==
LOC: EDH 00:24
DX: J45.901 Unspecified asthma with (acute) exacerbation (principal); F41.1 Generalized anxiety disorder; Z20.828 Contact with and (suspected) exposure to other viral communicable diseases; I10 Essential (primary) hypertension; E78.5 Hyperlipidemia, unspecified; K21.9 Gastro-esophageal reflux disease without esophagitis; Z79.899 Other long term (current) drug therapy; Z87.891 Personal history of nicotine dependence; Z90.49 Acquired absence of other specified parts of digestive tract
CPT/HCPCS: 36415; 36600; 71045; 80053; 81003; 82803; 84443; 84484; 85025; 87426; 93005; 94640; 99285; U0003

== ENCOUNTER 2020-11-01 12:08 | Observation (INO) | payer OTHER, MEDICARE ==
[~2020-11-01] VITALS: Ht 167.6 cm; Wt 49.9 kg
[~2020-11-01 12:08] MED LIST changes: -LISI40TA4 PO; +LISI40TA9 PO
[2020-11-01 12:39] LABS: BASOPHILS % (AUTO) 0.6 % (0.0-5.0); EOSINOPHILS % (AUTO) 0.2 % (0.0-8.0); HEMATOCRIT 34.1 % (42-54); LYMPHOCYTES % (AUTO) 16.5 % (21.0-51.0); MEAN CORPUSCULAR HEMOGLOBIN 30.5 pg (27.0-33.0); MEAN CORPUSCULAR HGB CONC 32.8 g/dL (32.0-36.0); MEAN CORPUSCULAR VOLUME 92.9 fL (79-99); MONOCYTES % (AUTO) 5.4 % (3.0-13.0); NEUTROPHILS % (AUTO) 76.9 % (40.0-77.0); PLATELET COUNT (AUTO) 302 K/uL (130-400); RED BLOOD CELL COUNT(AUTO) 3.67 MIL/uL (4.50-6.20); RED CELL DISTRIBUTION WIDTH 12.6 % (11.0-15.5); WHITE BLOOD COUNT (AUTO) 10.5 K/uL (4.8-10.8)
[2020-11-01 12:49] LABS: CREATININE 1.5 mg/dL (0.5-1.5); POTASSIUM 4.8 mmol/L (3.5-5.1)
[2020-11-01 12:54] LABS: ALBUMIN 4.4 g/dL (3.5-5.0); BILIRUBIN,TOTAL 0.5 mg/dL (0.2-1.0); TOTAL PROTEIN, SERUM 7.6 g/dL (6.0-8.3)
[2020-11-01 13:01] LABS: INR 0.96 (0.85-1.15); PROTHROMBIN TIME 10.5 SEC (9.6-11.6)
[2020-11-01 13:03] LABS: PARTIAL THROMBOPLASTIN TIME 23.4 SEC (26.3-35.5)
[2020-11-01] MEDS ORDERED: ACETAMINOPHEN 650 MG SUPPOSITORY RC PRN (15:30)
[2020-11-01] MEDS ORDERED: ONDANSETRON HCL 4 MG/2 ML VIAL IVP PRN (15:30)
[2020-11-01] MEDS ORDERED: POTASSIUM CHLORIDE 20MEQ/100ML 100 ML IV PRN ×2 (15:30)
[2020-11-01] MEDS ORDERED: DOCUSATE SODIUM 100 MG CAP PO PRN (15:30)
[2020-11-01] MEDS ORDERED: ACETAMINOPHEN 325 MG TAB PO PRN (15:30)
[2020-11-01] MEDS ORDERED: POTASSIUM CHLORIDE 20 MEQ ERTAB PO PRN (15:30)
[2020-11-01] MEDS ORDERED: CLONIDINE HCL 0.1 MG TABLET PO PRN (15:30)
[2020-11-01] MEDS ORDERED: DEXTROSE 50%-WATER 50 ML DISP.SYRIN IV PRN (15:30)
[2020-11-01] MEDS ORDERED: LIDOCAINE HCL-MPF 1% 2ML VIAL IV PRN ×2 (15:30)
[2020-11-01] MEDS ORDERED: GLUCAGON 1MG KIT 1 MG ML IM PRN (15:30)
[2020-11-01] MEDS ORDERED: ASPIRIN 325 MG TABLET PO ONE (15:30)
[2020-11-01] MEDS ORDERED: POTASSIUM CHLORIDE 10% ELIXIR 20 MEQ/15 ML UDCUP PO PRN (15:30)
[2020-11-01 16:03] LABS: APPEARANCE,URINE Clear (CLEAR); BILIRUBIN,URINE Negative (NEGATIVE); COLOR,URINE Yellow (YELLOW); GLUCOSE, URINE (UA) Negative (NEGATIVE); KETONES,URINE Negative (NEGATIVE); LEUKOCYTE ESTERASE ,URINE Negative (NEGATIVE); NITRATE,URINE Negative (NEGATIVE); OCCULT BLOOD,URINE Negative (NEGATIVE); PROTEIN,URINE Negative (NEGATIVE); UROBILINOGEN,URINE 0.2 mg/dL (0.2-1.0)
[2020-11-01 16:11] LABS: AMPHET/METH SCREEN,URINE NEGATIVE (NEGATIVE); BARBITURATE SCREEN, URINE NEGATIVE (NEGATIVE); BENZODIAZEPINES SCREEN,URINE NEGATIVE (NEGATIVE); CANNABINOID SCREEN,URINE NEGATIVE (NEGATIVE); COCAINE SCREEN,URINE NEGATIVE (NEGATIVE); OPIATE SCREEN,URINE NEGATIVE (NEGATIVE); PHENCYCLIDINE SCREEN,URINE NEGATIVE (NEGATIVE)
[2020-11-01] MEDS ORDERED: ASPIRIN 325 MG TABLET ONE (16:22)
[2020-11-01] MEDS: INSULIN HUMULIN R 100 UNIT/ML 3ML SQ SCH ×2 (16:30→21:00)
[2020-11-01 16:56] LABS: CREATINE KINASE, TOTAL 71 U/L (21-232); MYOGLOBIN 73 ng/mL (10-92); TROPONIN I < 0.04 ng/mL (0.00-0.06)
[2020-11-01 19:00] VITALS: BP 164/63
[2020-11-01 23:18] LABS: CREATINE KINASE, TOTAL 76 U/L (21-232); MYOGLOBIN 78 ng/mL (10-92); TROPONIN I < 0.04 ng/mL (0.00-0.06)
[2020-11-02] VITALS: BP 100/50
[2020-11-02 04:00] VITALS: BP 102/50
[2020-11-02 04:29] LABS: BASOPHILS % (AUTO) 0.9 % (0.0-5.0); EOSINOPHILS % (AUTO) 0.9 % (0.0-8.0); HEMATOCRIT 33.2 % (42-54); LYMPHOCYTES % (AUTO) 28.5 % (21.0-51.0); MEAN CORPUSCULAR HEMOGLOBIN 30.1 pg (27.0-33.0); MEAN CORPUSCULAR HGB CONC 31.6 g/dL (32.0-36.0); MEAN CORPUSCULAR VOLUME 95.1 fL (79-99); MONOCYTES % (AUTO) 11.5 % (3.0-13.0); NEUTROPHILS % (AUTO) 57.9 % (40.0-77.0); PLATELET COUNT (AUTO) 294 K/uL (130-400); RED BLOOD CELL COUNT(AUTO) 3.49 MIL/uL (4.50-6.20); RED CELL DISTRIBUTION WIDTH 12.6 % (11.0-15.5); WHITE BLOOD COUNT (AUTO) 7.7 K/uL (4.8-10.8)
[2020-11-02 04:32] LABS: HEMOGLOBIN A1C 5.5 % (4.0-6.0)
[2020-11-02 04:48] LABS: CARBON DIOXIDE 24 mmol/L (21-32); CHLORIDE 104 mmol/L (101-111); CHOLESTEROL 118 mg/dL (<200); CREATINE KINASE, TOTAL 71 U/L (21-232); CREATININE 1.5 mg/dL (0.5-1.5); GLOMERULAR FILTR. RATE CALC 49 mL/min (>60); GLUCOSE,RANDOM 91 mg/dL (70-105); HDL CHOLESTEROL 53 mg/dL (29-71); LDL DIRECT 50 mg/dL (0-99); MYOGLOBIN 65 ng/mL (10-92); PHOSPHORUS 3.7 mg/dL (2.5-4.9); SODIUM SERUM 137 mmol/L (136-145); TRIGLYCERIDES 60 mg/dL (30-200); TROPONIN I < 0.04 ng/mL (0.00-0.06); UREA NITROGEN, BLOOD 30 mg/dL (7-18)
[2020-11-02] MEDS: INSULIN HUMULIN R 100 UNIT/ML 3ML SQ SCH ×3 (06:57→16:30)
[2020-11-02 07:35] VITALS: BP 146/61
[2020-11-02] MEDS ORDERED: LORAZEPAM 1 MG TABLET PO PRN (08:00)
[2020-11-02] MEDS ORDERED: ASPIRIN 81MG TAB.CHEW PO SCH (09:00)
[2020-11-02] MEDS ORDERED: PANTOPRAZOLE SODIUM 40 MG TABLET.DR PO SCH (09:00)
[2020-11-02] MEDS ORDERED: BUSPIRONE HCL 5 MG PO SCH (09:00)
[2020-11-02] MEDS ORDERED: ENOXAPARIN SODIUM 40 MG/0.4 ML SYRINGE SQ SCH (09:00)
[2020-11-02] MEDS ORDERED: NON-FORMULARY MEDICATION 1 EACH (Simvastatin 40 MG) PO SCH (09:00)
[2020-11-02] MEDS ORDERED: FLUTICASONE/VILANTEROL 1 EACH AER.POW.BA IH SCH (09:00)
[2020-11-02 11:24] VITALS: BP 124/56
[2020-11-02] MEDS ORDERED: HYDR12.54 PO (13:24)
[2020-11-02] MEDS ORDERED: ASPI-1005 PO (13:24)
[2020-11-02 15:42] VITALS: BP 128/58
[2020-11-02] MEDS ORDERED: HYDROCHLOROTHIAZIDE 25 MG TABLET PO SCH (16:00)
[2020-11-02] MEDS ORDERED: BUSPIRONE HCL 5 MG TABLET PO SCH (21:00)
[2020-11-03] MEDS ORDERED: SIMVASTATIN 20 MG TABLET PO SCH (09:00)
[2020-11-03] MEDS ORDERED: HYDROCHLOROTHIAZIDE 25 MG TABLET PO SCH (09:00)
[2020-11-03] MEDS ORDERED: BREO ELLIPTA 100-25 MCG IH SCH (09:00)
== END 2020-11-02 18:58 | disposition home or self-care (01) ==
LOC: EDH 12:08 → EDHIP 15:25 → 4AH 19:00
PROVIDERS: ADMIT Internal Medicine Critical Care Medicine; ATTEND Internal Medicine Critical Care Medicine
DX: G45.9 Transient cerebral ischemic attack, unspecified (principal); Z20.822 Contact with and (suspected) exposure to COVID-19; R42 Dizziness and giddiness; J43.9 Emphysema, unspecified; I10 Essential (primary) hypertension; E78.5 Hyperlipidemia, unspecified; F41.9 Anxiety disorder, unspecified; K21.9 Gastro-esophageal reflux disease without esophagitis; F17.200 Nicotine dependence, unspecified, uncomplicated; Z90.49 Acquired absence of other specified parts of digestive tract; Z79.02 Long term (current) use of antithrombotics/antiplatelets; Z79.51 Long term (current) use of inhaled steroids; Z79.899 Other long term (current) drug therapy
CPT/HCPCS: 36415 ×2; 70450; 70544; 70547; 70551; 71045; 80048; 80053; 80061; 80305; 81003; 82550 ×4; 82948 ×2; 83036; 83721; 83735; 83874 ×3; 84100; 84484 ×4; 85025 ×2; 85610; 85730; 87426; 92522; 92610; 93005 ×2; 93306; 93880; 94760 ×3; 96372; 97039; 97116; 97161; 99285; G0378 ×26; G8978; G8979; G8980; G8981; G8982; G8983; J1650; J2405; U0003

== ENCOUNTER 2023-06-23 11:05 | Emergency (ER) | payer OTHER, MEDICARE ==
[~2023-06-23] VITALS: Ht 167.6 cm; Wt 54.4 kg
[~2023-06-23 11:05] MED LIST changes: -AMLO-257 PO; +ASPI-1005 PO; +HYDR12.54 PO; -HYDR25TA PO; -LISI40TA9 PO
[2023-06-23 11:44] LABS: BASOPHILS # (AUTO) 0.05 K/uL (0.00-0.20); BASOPHILS % (AUTO) 0.4 % (0.0-5.0); EOSINOPHILS # (AUTO) 0.02 K/uL (0.00-0.70); EOSINOPHILS % (AUTO) 0.2 % (0.0-8.0); HEMATOCRIT 41.5 % (42-54); IMMATURE GRANULOCYTE ABSOLUTE 0.08 K/uL (0-1); LYMPHOCYTES % (AUTO) 7.6 % (21.0-51.0); MEAN CORPUSCULAR HEMOGLOBIN 28.1 pg (27.0-33.0); MEAN CORPUSCULAR VOLUME 87.6 fL (79-99); MONOCYTES # (AUTO) 0.7 K/uL (0.1-1.0); MONOCYTES % (AUTO) 5.6 % (3.0-13.0); NEUTROPHILS # (AUTO) 11.2 K/uL (1.8-7.7); NEUTROPHILS % (AUTO) 85.6 % (40.0-77.0); PLATELET COUNT (AUTO) 279 K/uL (130-400); RED BLOOD CELL COUNT(AUTO) 4.74 MIL/uL (4.50-6.20); RED CELL DISTRIBUTION WIDTH 14.2 % (11.0-15.5); WHITE BLOOD COUNT (AUTO) 13.1 K/uL (4.8-10.8)
[2023-06-23 11:54] LABS: CREATININE 1.3 mg/dL (0.5-1.5)
[2023-06-23] MEDS ORDERED: ALBUTEROL 0.083% 2.5 MG/3 ML INH IH ONE ×3 (11:58→12:00)
[2023-06-23] MEDS ORDERED: SOLU-MEDROL 125MG VIAL IVP ONE (12:00)
[2023-06-23 12:09] VITALS: PULSE 98; RESP 22
[2023-06-23 12:14] LABS: ABG BASE EXCESS -1.5 mmol/L (-2.0-3.0); ABG HCO3 24.5 mmol/L (21.0-28.0); ABG OXYGEN SATURATION 97.8 % (95.0-99.0); ABG PCO2 46 mmHg (35-48); ABG PH 7.341 (7.35-7.450); CARBON MONOXIDE 0.5; DEVICE COMMENT RR 2LNC; HHb 2.2; PO2, ARTERIAL BG 109.3 mmHg (83.0-108.0)
[2023-06-23 13:50] VITALS: BP 135/63; PULSE 96; RESP 20; O2SAT 98
[2023-06-23] MEDS ORDERED: GUAI600T50 PO (13:55)
[2023-06-23] MEDS ORDERED: ALBUHFA IH (13:55)
[2023-06-23] MEDS ORDERED: AUD IH (13:55)
== END 2023-06-23 14:30 | disposition home or self-care (01) ==
LOC: EDH 11:05
DX: J44.9 Chronic obstructive pulmonary disease, unspecified (principal); I10 Essential (primary) hypertension; E78.00 Pure hypercholesterolemia, unspecified; F41.9 Anxiety disorder, unspecified; Z79.82 Long term (current) use of aspirin; Z79.899 Other long term (current) drug therapy; Z87.891 Personal history of nicotine dependence
CPT/HCPCS: 99285; 96374; 71045; 82947; 84484; 82803; 80048; 83880; 85025; 83605 ×2; 36415; 93005; 36600; 94640; 85018; 82435; 84132; 84295; J2930